=== PATIENT | male | born 1955 | race Asian ===

== ENCOUNTER 2020-12-18 16:13 | Emergency (ER) | payer OTHER ==
[~2020-12-18] VITALS: Ht 167.6 cm; Wt 59.1 kg
[~2020-12-18 16:13] MED LIST: TAMS-1 PO
[2020-12-18 17:32] LABS: GLUCOSE,POINT OF CARE 204 MG/DL (70-110)
[2020-12-18] MEDS ORDERED: LIDOCAINE 2%/EPI 1:200,000/PF 10 ML VIAL ID ONE (18:00)
[2020-12-18 19:45] VITALS: BP 130/93
== END 2020-12-18 20:05 | disposition home or self-care (01) ==
LOC: EMS 16:13
DX: S01.111A Laceration without foreign body of right eyelid and periocular area, initial encounter (principal); I10 Essential (primary) hypertension; E78.00 Pure hypercholesterolemia, unspecified; W06.XXXA Fall from bed, initial encounter; Y93.89 Activity, other specified; Y92.89 Other specified places as the place of occurrence of the external cause; Y99.8 Other external cause status
CPT/HCPCS: 12002; 12013; 70450; 72125; 99285